=== PATIENT | male | born 1965 | race Caucasian/White ===

== ENCOUNTER 2019-04-06 09:23 | Day surgery (SDC) | payer BC ==
[~2019-04-06 09:23] MED LIST: Lactated Ringers 1,000 ML IV SCH; Lidocaine 1%/Sod Bicarbonate in NS 8.4% 1 ML Syringe IDERM PRN; Sodium Chloride 0.9% 10 ML Syringe FLUSH PRN
[2019-04-06] MEDS ORDERED: Bupivacaine 0.25% 10 ML SDV ONE (11:05)
[2019-04-06] MEDS ORDERED: Ketorolac 30 MG/ML SDV ONE (11:13)
[2019-04-06] MEDS ORDERED: Ondansetron 4 MG/2 ML SDV ONE (11:13)
[2019-04-06] MEDS ORDERED: Lactated Ringers 1,000 ML ONE ×2 (11:13→11:27)
[2019-04-06] MEDS ORDERED: ceFAZolin 1 GM Vial ONE (11:13)
[2019-04-06] MEDS ORDERED: Propofol 200 MG/20 ML SDV ONE (11:14)
[2019-04-06] MEDS ORDERED: fentaNYL 100 MCG/2 ML SDV ONE (11:14)
[2019-04-06] MEDS ORDERED: Lidocaine 1% 4 ML ONE (11:14)
[2019-04-06] MEDS ORDERED: Midazolam 1 MG/ML 2 ML SDV ONE (11:14)
[2019-04-06] MEDS ORDERED: Dexamethasone 4 MG/ML 5 ML MDV ONE (11:25)
[2019-04-06] MEDS ORDERED: Ketamine 500 mg/10 ML MDV ONE (11:42)
[2019-04-06] MEDS ORDERED: ePHEDrine/Normal Saline 25 MG/5 ML Syringe ONE (11:48)
[2019-04-06] MEDS ORDERED: diphenhydrAMINE 50 MG/ML SDV IVPUSH PRN (12:07)
[2019-04-06] MEDS ORDERED: Ondansetron 4 MG/2 ML SDV IVPUSH PRN (12:07)
[2019-04-06] MEDS ORDERED: HYDROmorphone 0.5 MG/0.5 ML Syringe IVPUSH PRN (12:07)
[2019-04-06] MEDS ORDERED: fentaNYL 100 MCG/2 ML SDV IVPUSH PRN (12:07)
--- NOTE | 2019-04-06 12:37 | PCM.POSTAN ---
POST ANESTHESIA ASSESSMENT - MENTAL STATUS Mental Status: Somnolent - VITAL SIGNS Vital Signs: Last Vital Signs 1223 121/65 68 9 94% 98.3F - RESPIRATORY Respiratory Status: Respiratory Rate WNL, Airway Patent, O2 Saturation Stable, Supplemental Oxygen - CARDIOVASCULAR CV Status: Pulse Rate WNL, Blood Pressure Stable - GASTROINTESTINAL GI Status: No Symptoms - PAIN Pain Score: 0 - POST OP HYDRATION Hydration Status: Adequate & Stable
--- NOTE | 2019-04-06 12:38 | PCM.PREANE ---
Preanesthetic Assessment - Anesthesia/Transfusion/Family Hx Anesthesia History: Prior Anesthesia Without Reaction Family History of Anesthesia Reaction: No - Review of Systems General: No Symptoms Pulmonary: No Symptoms Cardiovascular: No Symptoms Gastrointestinal: No Symptoms Neurological: No Symptoms Other: Reports: None - Physical Assessment NPO Status Date: 04/05/19 NPO Status Time: 20:00 Vital Signs: Last Vital Signs Temp 36.7 C 04/06/19 09:30 Pulse 69 04/06/19 09:30 Resp 16 04/06/19 09:30 BP 145/84 H 04/06/19 09:30 Pulse Ox 96 04/06/19 09:30 Height: 1.75 m Weight: 87.997 kg ASA Class: 1 Mental Status: Alert & Oriented x3 Dentition: Reports: Normal Dentition (Caps molars) Thyro-Mental Finger Breadths: 3 Mouth Opening Finger Breadths: 3 ROM/Head Extension: Full Lungs: Clear to Auscultation, Normal Respiratory Effort Cardiovascular: Regular Rate, Regular Rhythm - Lab Values: Laboratory Last Values MRSA (PCR) Negative 04/05/19 15:17 - Allergies Allergies/Adverse Reactions: Allergies Allergy/AdvReac Type Severity Reaction Status Date / Time No Known Allergies Allergy Verified 04/05/19 14:18 - Acknowledgements Anesthesia Type Planned: General Anesthesia Pt an Appropriate Candidate for the Planned Anesthesia: Yes Alternatives and Risks of Anesthesia Discussed w Pt/Guardian: Yes Pt/Guardian Understands and Agrees with Anesthesia Plan: Yes PreAnesthesia Questionnaire HEENT History: Reports: None Cardiovascular History: Reports: None Respiratory History: Reports: None Gastrointestinal History: Reports: None Genitourinary History: Reports: None [employer]IDENT [employer] History: Reports: None Musculoskeletal History: Reports: None Neurological History: Reports: None Psychiatric History: Reports: None Endocrine/Metabolic History: Reports: None Hematologic History: Reports: None Immunologic History: Reports: None Oncologic (Cancer) History: Reports: None Dermatologic History: Reports: None - Past Surgical History Head Surgeries/Procedures: Reports: None HEENT Surgical History: Reports: None Cardiovascular Surgical History: Reports: None Respiratory Surgical History: Reports: None GI Surgical History: Reports: Hernia, Inguinal Female Surgical History: Reports: None Male Surgical History: Reports: None Endocrine Surgical History: Reports: None Neurological Surgical History: Reports: None Musculoskeletal Surgical History: Reports: None Oncologic Surgical History: Reports: None Dermatological Surgical History: Reports: None - SUBSTANCE USE Smoking Status *Q: Never Smoker Recreational Drug Use History: No - HOME MEDS Home Medications: Home Meds Loratadine [Claritin] 10 mg PO DAILY PRN 04/05/19 [History] Acetaminophen/HYDROcodone [[place] 325-5 MG] 1 - 2 tab PO Q6H PRN #20 tablet 04/06 [Rx] Aspirin 325 mg PO BID #84 tab 04/06/19 [Rx] - CURRENT (IN HOUSE) MEDS Current Meds: Current Medications Diphenhydramine HCl (Benadryl) 25 mg IVPUSH Q6H PRN PRN Reason: Pruritis Stop: 04/06/19 16:00 Fentanyl (Sublimaze) 50 mcg IVPUSH Q5M PRN PRN Reason: Pain Stop: 04/06/19 16:00 Hydromorphone HCl (Dilaudid) 0.5 mg IVPUSH Q15M PRN PRN Reason: severe pain Stop: 04/06/19 16:00 Lactated Ringer's (Ringers, Lactated) 1,000 mls @ 125 mls/hr IV ASDIRECTED BRYNN Stop: 04/06/19 23:00 Last Admin: 04/06/19 09:45 Dose: 125 mls/hr Lidocaine/Sodium Bicarbonate (Buffered Lidocaine 1% In Ns 8.4%) 0.25 ml IDERM ONETIME PRN PRN Reason: Prior to IV Start Stop: 04/06/19 18:00 Last Admin: 04/06/19 09:45 Dose: 0.25 ml Ondansetron HCl (Zofran) 4 mg IVPUSH ONETIME PRN PRN Reason: Nausea/Vomiting Stop: 04/06/19 16:00 Sodium Chloride (Saline Flush) 10 ml FLUSH ASDIRECTED PRN PRN Reason: Keep Vein Open Stop: 04/06/19 18:00 Discontinued Medications Bupivacaine HCl (Sensorcaine-Mpf 0.25%) Confirm Administered Dose 20 ml .ROUTE .STK-MED ONE Stop: 04/06/19 11:06 Last Admin: 04/06/19 11:49 Dose: 10 ml Cefazolin Sodium (Ancef) Confirm Administered Dose 2 gm .ROUTE .STK-MED ONE Stop: 04/06/19 11:14 Dexamethasone (Dexamethasone) Confirm Administered Dose 20 mg .ROUTE .STK-MED ONE Stop: 04/06/19 11:26 Ephedrine Sulfate (Ephedrine In Ns) Confirm Administered Dose 25 mg .ROUTE .STK- MED ONE Stop: 04/06/19 11:49 Fentanyl (Sublimaze) Confirm Administered Dose 100 mcg .ROUTE .STK-MED ONE Stop: 04/06/19 11:15 Lactated Ringer's (Ringers, Lactated) Confirm Administered Dose 1,000 mls @ as directed .ROUTE .STK-MED ONE Stop: 04/06/19 11:14 Lidocaine HCl (Xylocaine-Mpf 1%) Confirm Administered Dose 4 mls @ as directed .ROUTE .STK-MED ONE Stop: 04/06/19 11:15 Lactated Ringer's (Ringers, Lactated) Confirm Administered Dose 1,000 mls @ as directed .ROUTE .STK-MED ONE Stop: 04/06/19 11:28 Ketamine HCl (Ketalar) Confirm Administered Dose 500 mg .ROUTE .STK-MED ONE Stop: 04/06/19 11:43 Ketorolac Tromethamine (Toradol) Confirm Administered Dose 30 mg .ROUTE .STK- MED ONE Stop: 04/06/19 11:14 Midazolam HCl (Versed 1 Mg/Ml) Confirm Administered Dose 2 mg .ROUTE .STK-MED ONE Stop: 04/06/19 11:15 Ondansetron HCl (Zofran) Confirm Administered Dose 4 mg .ROUTE .STK-MED ONE Stop: 04/06/19 11:14 Propofol (Diprivan 20 Ml) Confirm Administered Dose 400 mg .ROUTE .STK-MED ONE Stop: 04/06/19 11:15
--- NOTE | 2019-04-06 13:12 | PCM48HPAN ---
Post Anesthesia Note - EVALUATION WITHIN 48HRS OF ANESTHETIC Vital Signs in Normal Range: Yes Patient Participated in Evaluation: Yes Respiratory Function Stable: Yes Airway Patent: Yes Cardiovascular Function Stable: Yes Hydration Status Stable: Yes Pain Control Satisfactory: Yes Nausea and Vomiting Control Satisfactory: Yes Mental Status Recovered: Yes Vital Signs: Last Vital Signs Temp 36.6 C 04/06/19 13:08 Pulse 55 L 04/06/19 13:08 Resp 18 04/06/19 13:08 BP 120/77 04/06/19 13:08 Pulse Ox 96 04/06/19 13:08
--- NOTE | 2019-04-11 09:23 | PCM.OPNOTE ---
- General Post-Op/Procedure Note Date of Surgery/Procedure: 04/06/19 Operative Procedure(s): excision of right knee cyst deep subfascial Pre Op Diagnosis: right knee cyst Post-Op Diagnosis: Same Anesthesia Technique: General LMA, Local Primary Surgeon: Mack Ware Anesthesia Provider: Sara Ramirez Men'S Garment Fitter: Criselda Lester in mLs: 5 Complications: None Condition: Good
--- NOTE | 2019-04-11 09:59 | OR ---
DATE OF OPERATION: 04/06/2019 SURGEON: Mack Ware MD OPERATION PERFORMED: Excision of right knee cyst, deep, subfascial. PREOPERATIVE DIAGNOSIS: Right knee cyst. POSTOPERATIVE DIAGNOSIS: Right knee cyst. ANESTHESIA: General LMA with local. ANESTHESIA PROVIDER: Demetria Merino. THERAPIST OCCUPATIONAL: Criselda Lester PA-C ESTIMATED BLOOD LOSS: 5 mL. COMPLICATIONS: None. CONDITION: Stable. DESCRIPTION OF PROCEDURE: The patient was identified in the preop holding area. Proper site was marked and identified by the surgeon. The patient was taken back to the operating theater, where after adequate anesthesia, the patient was placed supine on radiolucent table. The right lower extremity had a nonsterile tourniquet applied and was then sterilely prepped and draped in the usual sterile fashion. OR time-out was performed. The patient received 2 g IV Ancef. Right lower extremity was exsanguinated. Tourniquet was insufflated to 250 mmHg. Incision was made centered over the IT band distally to Gerdy's tubercle. This was taken down to the IT band. The cyst was noted to be multiloculated and posterior and deep to the posterior border of the IT band. This was taken back down into the stalk. It was noted to come from the joint line near the lateral meniscus, but there was no meniscal tear and there was no opening to the joint other than the small stalk. At this time, the right knee cyst was excised in whole. The area in question of the stalk had 0 Vicryl [id number] stitches placed in it. At this time, adequate saline was irrigated through the wound. 0 Vicryl was used for closure of the fascial compartment, 2-0 Vicryl was used subcutaneously, and madeline used for the skin. The patient was placed in a sterile soft dressing and sent to the PACU in stable condition. MMODAL /[id number]
== END 2019-04-06 14:40 | disposition home or self-care (01) ==
LOC: JD.SDS 09:23
PROVIDERS: ATTEND Orthopaedic Surgery
DX: M67.461 Ganglion, right knee (principal); Z87.891 Personal history of nicotine dependence
CPT/HCPCS: 27347; 87641; J0690; J1100; J1885; J2001; J2250; J2405; J2704; J3010; J3490; J7050; J7120; 01400

== ENCOUNTER 2019-04-08 12:47 | Emergency (ER) | payer BC ==
[2019-04-08] MEDS ORDERED: Sodium Chloride 0.9% 10 ML Syringe FLUSH PRN (13:00)
[2019-04-08] MEDS ORDERED: methylPREDNISolone Sodium Succinate 125 MG/2 ML SDV IVPUSH ONE (13:00)
[2019-04-08] MEDS ORDERED: Famotidine 20 MG/2 ML SDV IVPUSH ONE ×2 (13:01→13:40)
[2019-04-08] MEDS ORDERED: diphenhydrAMINE 50 MG/ML SDV IVPUSH ONE (13:01)
[2019-04-08] MEDS ORDERED: EPINEPHrine 1 MG/ML SDV IM ONE (13:07)
--- NOTE | 2019-04-08 13:32 | EDM.PDOC ---
ED HPI GENERAL MEDICAL PROBLEM - General Chief Complaint: Allergic Reaction Stated Complaint: EYES SWOLLEN AND RED/POSS ALLERGIC REACTION Time Seen by Provider: 04/08/19 13:00 - History of Present Illness INITIAL COMMENTS - FREE TEXT/NARRATIVE: 53 -year-old male presents emergency room with the allergic reaction Started around noon came on fairly fast he had significant itching facial swelling and he had some throat tightness with this as well. Upon arrival to the emergency room received Pepcid epi Benadryl and Solu-Medrol he is doing much better at this time. He still has some swelling swelling on his face is getting better he still has some angioedematous changes behind his uvula but this seems to be getting better. Patient has no breathing difficulties or shortness of breath at this time. Patient was recently started on aspirin first dose yesterday to prevent blood clots he had orthopedic surgery. He's had no other new medications or new exposures that he is aware of. Upon arrival here today his right eye was nearly completely swollen shut it is now mostly open. Throat Pain Score (Numeric/FACES): 6 - Related Data Allergies Allergy/AdvReac Type Severity Reaction Status Date / Time No Known Allergies Allergy Verified 04/05/19 14:18 Home Meds: Home Meds Loratadine [Claritin] 10 mg PO DAILY PRN 04/05/19 [History] Acetaminophen/HYDROcodone [[place] 325-5 MG] 1 - 2 tab PO Q6H PRN #20 tablet 04/06 [Rx] Aspirin 325 mg PO BID #84 tab 04/06/19 [Rx] predniSONE 60 mg PO WITHBREAKFAST #12 tab 04/08/19 [Rx] Past Medical History HEENT History: Reports: None Cardiovascular History: Reports: None Respiratory History: Reports: None Gastrointestinal History: Reports: None Genitourinary History: Reports: None [employer] 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 History: Reports: None Musculoskeletal History: Reports: None Neurological History: Reports: None Psychiatric History: Reports: None Endocrine/Metabolic History: Reports: None Hematologic History: Reports: None Immunologic History: Reports: None Oncologic (Cancer) History: Reports: None Dermatologic History: Reports: None - Past Surgical History Head Surgeries/Procedures: Reports: None HEENT Surgical History: Reports: None Cardiovascular Surgical History: Reports: None Respiratory Surgical History: Reports: None GI Surgical History: Reports: Hernia, Inguinal Male Surgical History: Reports: None Endocrine Surgical History: Reports: None Neurological Surgical History: Reports: None Musculoskeletal Surgical History: Reports: None, Other (See Below) Other Musculoskeletal Surgeries/Procedures:: bursa removed from the right knee Oncologic Surgical History: Reports: None Dermatological Surgical History: Reports: None Social & Family History - Tobacco Use Smoking Status *Q: Former Smoker Used Tobacco, but Quit: Yes Month/Year Tobacco Last Used: 5 yr - Caffeine Use Caffeine Use: Reports: Soda, Tea - Recreational Drug Use Recreational Drug Use: No ED ROS ALLERGIC REACTION - Review of Systems Review Of Systems: See Below Constitutional: Reports: No Symptoms HEENT: Reports: Other (eye swelling throat tightness). Denies: No Symptoms Respiratory: Reports: Shortness of Breath Cardiovascular: Reports: No Symptoms Endocrine: Reports: No Symptoms GI/Abdominal: Reports: No Symptoms : Reports: No Symptoms Skin: Reports: No Symptoms Neurological: Reports: No Symptoms Psychiatric: Reports: No Symptoms ED EXAM GENERAL NO PERIP PULSE - Physical Exam Exam: See Below Exam Limited By: No Limitations General Appearance: Alert, No Apparent Distress Eye Exam: Right Eye: Periorbital Changes (He has some swelling in this area) Ears: Normal External Exam, Normal Canal, Hearing Grossly Normal, Normal TMs Nose: Normal Inspection, Normal Mucosa, No Blood Throat/Mouth: Normal Lips, Normal Teeth, Other (Uvula looks normal however he has some angioedematous tissue behind it airways cleared open at this particular moment.) Head: Atraumatic, Normocephalic Neck: Normal Inspection, Supple, Non-Tender, Full Range of Motion Respiratory/Chest: No Respiratory Distress, Lungs Clear, Normal Breath Sounds, No Accessory Muscle Use, Chest Non-Tender Cardiovascular: Normal Peripheral Pulses, Regular Rate, Rhythm, No Edema, No Gallop, No JVD, No Murmur, No Rub GI/Abdominal: Normal Bowel Sounds, Soft, Non-Tender, No Organomegaly, No Distention Course - Vital Signs Last Recorded V/S: Last Vital Signs Temp 36.3 C 04/08/19 12:53 Pulse 66 04/08/19 12:53 Resp 20 04/08/19 12:53 BP 154/80 H 04/08/19 12:53 Pulse Ox 96 04/08/19 12:53 - Orders/Labs/Meds Orders: Active Orders 24 hr Category Date Time Status Peripheral IV Care [RC] . DIRECTED Care 04/08/19 13:00 Active Sodium Chloride 0.9% [Saline Flush] Med 04/08/19 13:00 Active 10 ml FLUSH ASDIRECTED PRN Peripheral IV Insertion Adult [OM.PC] Routine Oth 04/08/19 13:00 Ordered Medication Orders Sodium Chloride (Saline Flush) 10 ml FLUSH ASDIRECTED PRN PRN Reason: Keep Vein Open Last Admin: 04/08/19 13:16 Dose: 10 ml Meds: Medications Generic Name Dose Route Start Last Admin Trade Name Freq PRN Reason Stop Dose Admin Sodium Chloride 10 ml 04/08/19 13:00 04/08/19 13:16 Saline Flush FLUSH 10 ml ASDIRECTED PRN Administration Keep Vein Open Discontinued Medications Generic Name Dose Route Start Last Admin Trade Name Freq PRN Reason Stop Dose Admin Diphenhydramine HCl 50 mg 04/08/19 13:01 04/08/19 13:16 Benadryl IVPUSH 04/08/19 13:02 50 mg ONETIME ONE Administration Epinephrine HCl 0.3 mg 04/08/19 13:07 04/08/19 13:17 Adrenalin IM 04/08/19 13:08 0.3 mg ONETIME ONE Administration Famotidine 20 mg 04/08/19 13:01 04/08/19 13:16 Pepcid IVPUSH 04/08/19 13:02 20 mg ONETIME ONE Administration Famotidine 20 mg 04/08/19 13:40 04/08/19 13:55 Pepcid IVPUSH 04/08/19 13:41 20 mg ONETIME ONE Administration Methylprednisolone Sodium Succinate 125 mg 04/08/19 13:00 04/08/19 13:16 Solu-Medrol IVPUSH 04/08/19 13:01 125 mg ONETIME ONE Administration - Re-Assessments/Exams Free Text/Narrative Re-Assessment/Exam: 04/08/19 18:35 She's had frequent checks isn't then. Some electric angioedematous tissue behind his uvula and involving the lateral margins of his uvula this is progressively decreases sore throat is much better. It is nearly back to normal at this point patient really would like to go home. The patient was recently started on aspirin to prevent blood clots after an orthopedic procedure couple of days ago. He is also taking oxycodone or hydrocodone were trying to clarify which pain medication he is on. But he will stop the aspirin at this point case discussed with Dr. Cramer, on-call orthopedic surgeon at [facility] [place]. The patient is on [place] however the patient thinks she'll do just fine on Tylenol. The patient is been fairly active since time of the surgery and has been walking quite a bit. He uses a single crutch to assist him going up and down stairs. Departure - Departure Time of Disposition: 18:15 Disposition: Home, Self-Care 01 Clinical Impression: Allergic reaction caused by a drug - Discharge Information Prescriptions: predniSONE 60 mg PO WITHBREAKFAST #12 tab Referrals: Murali Batista Jr, MD [Primary Care Provider] - Forms: ED Department Discharge Additional Instructions: Return to emergency room with any questions problems or worsening symptoms. 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 Take Benadryl 25 mg every 6 hours for the next 24 hours and then as needed. Benadryl can cause sedation. Take the prednisone 20 mg tablets 3 of them every morning first thing in the morning for the next 4 mornings. Take with food Use Tylenol as needed for discomfort
== END 2019-04-08 19:13 | disposition home or self-care (01) ==
LOC: JD.ED 12:47
DX: R22.0 Localized swelling, mass and lump, head (principal); T39.015A Adverse effect of aspirin, initial encounter; Z87.891 Personal history of nicotine dependence
CPT/HCPCS: 96372; 96374; 96375; 96376; 99283; J0171; J1200; J2930; J3490

== ENCOUNTER 2021-05-13 12:01 | Emergency (ER) | payer BC ==
--- NOTE | 2021-05-13 13:21 | EDM.PDOC ---
<Case Lorenzo - Last Filed: 05/13/21 13:20> ED HPI GENERAL MEDICAL PROBLEM - General Chief Complaint: Respiratory Problem Stated Complaint: had covid cough sob Time Seen by Provider: 05/13/21 13:20 - Related Data Allergies Allergy/AdvReac Type Severity Reaction Status Date / Time aspirin Allergy Swelling Verified 05/13/21 12:34 hydrocodone Allergy Swelling Verified 05/13/21 12:34 Home Meds: Home Meds Loratadine [Claritin] 10 mg PO DAILY PRN 04/05/19 [History] Acetaminophen/HYDROcodone [[place] 325-5 MG] 1 - 2 tab PO Q6H PRN #20 tablet 04/06/19 [Rx] Aspirin 325 mg PO BID #84 tab 04/06/19 [Rx] predniSONE 60 mg PO WITHBREAKFAST #12 tab 04/08/19 [Rx] Azithromycin 250 mg PO ASDIRECTED #6 tablet 05/13/21 [Rx] Codeine/Promethazine [Phenergan with Codeine] 5 ml PO Q4HR PRN #120 ml 05/13/21 [Rx] Past Medical History HEENT History: Reports: None Cardiovascular History: Reports: None Respiratory History: Reports: None Gastrointestinal History: Reports: None Genitourinary History: Reports: None [employer] History: Reports: None Musculoskeletal History: Reports: None Neurological History: Reports: None Psychiatric History: Reports: None Endocrine/Metabolic History: Reports: None Hematologic History: Reports: None Immunologic History: Reports: None Oncologic (Cancer) History: Reports: None Dermatologic History: Reports: None - Infectious Disease History Infectious Disease History: Reports: Novel Coronavirus - Past Surgical History Head Surgeries/Procedures: Reports: None HEENT Surgical History: Reports: None Cardiovascular Surgical History: Reports: None Respiratory Surgical History: Reports: None GI Surgical History: Reports: Hernia, Inguinal Male Surgical History: Reports: None Endocrine Surgical History: Reports: None Neurological Surgical History: Reports: None Musculoskeletal Surgical History: Reports: None, Other (See Below) Other Musculoskeletal Surgeries/Procedures:: bursa removed from the right knee Oncologic Surgical History: Reports: None Dermatological Surgical History: Reports: None Social & Family History - Tobacco Use Tobacco Use Status *Q: Never Tobacco User - Caffeine Use Caffeine Use: Reports: Soda, Tea Departure - Departure Disposition: Home, Self-Care 01 Clinical Impression: COVID-19 Community acquired pneumonia Qualifiers: Laterality: unspecified laterality Qualified Code(s): J18.9 - Pneumonia, unspecified organism - Discharge Information Prescriptions: Azithromycin 250 mg PO ASDIRECTED #6 tablet Codeine/Promethazine [Phenergan with Codeine] 5 ml PO Q4HR PRN #120 ml PRN Reason: Cough Instructions: 10 Things You Can Do to Manage Your COVID-19 Symptoms at Home - [facility] (02/07/2021), Community-Acquired Pneumonia, Adult, [id number] Referrals: PCP,None [Primary Care Provider] - Forms: ED Department Discharge Additional Instructions: You were evaluated in the ER today for your cough, and shortness of breath. You had several labs taken at today's visit, chest x-ray and a chest CT for further evaluation. Although you do have a viral pneumonia, typical for ongoing COVID-19 infection, your white count was also slightly elevated to suggest a possible overlying bacterial pneumonia. Laboratory evaluation also demonstrated an elevated D-dimer, and a markedly elevated CRP. This is all suggestive of ongoing infection. Your chest CT demonstrated no sign of a blood clot in your lungs. You have been given 2 different medications one is azithromycin, you will need to take 2 tabs on day 1, and 1 tablet daily until gone. The other medication is a cough syrup, you may take 5 to 10 mL p.o. every 4-6 hours as needed for cough. This medication was electronically sent to the [facility] located near [facility]. You might want to try a medication like Mucinex to see if this helps break up some of the mucus in your chest this is something can get [id number] at any retail space. Please try to increase your oral fluid intake is much as possible, fluids like Gatorade/Powerade/Pedialyte would be acceptable. Try to eat multiple small meals throughout the day, to break this up in order to keep her self nourished. You are going to have to continue to keep feeding yourself in order to fight off of this disease. Sometimes symptoms from COVID-19 can take days to weeks to months to start feeling better. Please be aware, that this does not get better overnight. You might still be feeling under the weather for a period of time. Do not hesitate to return to the ER at any time if symptoms change or worsen. Sepsis Event Note (ED) - Evaluation Sepsis Screening Result: No Definite Risk <Sondra Deleon V - Last Filed: 05/13/21 18:33> ED HPI GENERAL MEDICAL PROBLEM - General Source of Information: Reports: Patient, RN Notes Reviewed History Limitations: Reports: No Limitations - History of Present Illness INITIAL COMMENTS - FREE TEXT/NARRATIVE: Patient is a 55-year-old male who presents to the ER for the evaluation of his lingering COVID-19 symptoms. Patient states that he tested positive for COVID- 19 on 05/01/2021. States that he has a lingering chills sensation, a dry nonproductive cough, chest discomfort due to the cough, some slight blood-tinged sputum due to the coughing, some slight nausea with one episode of vomiting after coughing fits and no appetite whatsoever. He states that he is only 9 maybe a handful of peanut butter sandwiches in the last week or so. O2 sats at the time of triage were about 89% on room air, he was placed on 2 L via nasal cannula and he is satting around 93% at this time with no visible respiratory difficulty. Patient was not vaccinated for COVID-19, he is denying any other past medical history. [facility] provider was Murali Batista, but he is not set up with anyone else since Dr. Batista has retired. ED ROS GENERAL - Review of Systems Review Of Systems: Comprehensive ROS is negative, except as noted in HPI. ED EXAM, GENERAL - Physical Exam Exam: See Below Exam Limited By: No Limitations General Appearance: Alert, WD/WN, No Apparent Distress Respiratory/Chest: No Respiratory Distress, Lungs Clear, Normal Breath Sounds, No Accessory Muscle Use, Chest Non-Tender Cardiovascular: Normal Peripheral Pulses, Regular Rate, Rhythm, No Edema Extremities: Normal Inspection, Normal Capillary Refill Neurological: Alert, Oriented, Normal Cognition, No Motor/Sensory Deficits Psychiatric: Normal Affect, Normal Mood Skin Exam: Warm, Dry, Intact, Normal Color, No Rash Course - Vital Signs Last Recorded V/S: Last Vital Signs Temp 100.0 F 05/13/21 15:59 Pulse 78 05/13/21 15:59 Resp 16 05/13/21 15:59 BP 127/60 05/13/21 13:59 Pulse Ox 97 05/13/21 15:59 - Orders/Labs/Meds Orders: Active Orders 24 hr Category Date Time Status Peripheral IV Care [RC] . DIRECTED Care 05/13/21 13:50 Ordered Sodium Chloride 0.9% [Normal Saline] 100 ml Med 05/13/21 15:30 Active IV ASDIRECTED Sodium Chloride 0.9% [Saline Flush] Med 05/13/21 13:49 Ordered 10 ml FLUSH ASDIRECTED PRN Peripheral IV Insertion Adult [OM.PC] Routine Oth 05/13/21 13:49 Ordered Medication Orders Sodium Chloride (Normal Saline) 100 mls @ 60 mls/hr IV ASDIRECTED BRYNN Sodium Chloride (Sodium Chloride 0.9% 10 Ml Syringe) 10 ml FLUSH ASDIRECTED PRN PRN Reason: Keep Vein Open Last Admin: 05/13/21 13:50 Dose: 10 ml Documented by: GUME Labs: Laboratory Tests 05/13/21 05/13/21 05/13/21 Range/Units 13:27 13:27 13:27 WBC 12.45 H (4.23-9.07) K/mm3 RBC 5.11 (4.63-6.08) M/mm3 Hgb 15.4 (13.7-17.5) gm/dl Hct 44.7 (40.1-51.0) % MCV 87.5 (79.0-92.2) fl MCH 30.1 (25.7-32.2) pg MCHC 34.5 (32.2-35.5) g/dl RDW Std Deviation 40.8 (35.1-43.9) fL Plt Count 557 H (163-337) K/mm3 MPV 9.4 (9.4-12.3) fl Neut % (Auto) 77.6 H (34.0-67.9) % Lymph % (Auto) 12.3 L (21.8-53.1) % [place] % (Auto) 8.1 (5.3-12.2) % Eos % (Auto) 0.2 L (0.8-7.0) Baso % (Auto) 0.5 (0.1-1.2) % Neut # (Auto) 9.67 H (1.78-5.38) K/mm3 Lymph # (Auto) 1.53 (1.32-3.57) K/mm3 [place] # (Auto) 1.01 H (0.30-0.82) K/mm3 Eos # (Auto) 0.02 L (0.04-0.54) K/mm3 Baso # (Auto) 0.06 (0.01-0.08) K/mm3 Manual Slide Review Abnormal smear D-Dimer, Quantitative 2.01 H (0.19-0.50) mg/L Sodium (136-145) mEq/L Potassium (3.5-5.1) mEq/L Chloride (98-107) mEq/L Carbon Dioxide (21-32) mEq/L Anion Gap (5-15) BUN (7-18) mg/dL Creatinine (0.7-1.3) mg/dL Est Cr Clr Drug Dosing mL/min Estimated GFR (MDRD) (>60) mL/min BUN/Creatinine Ratio (14-18) Glucose (70-99) mg/dL Calcium (8.5-10.1) mg/dL Total Bilirubin (0.2-1.0) mg/dL AST (15-37) U/L ALT (16-63) U/L Alkaline Phosphatase (46-116) U/L C-Reactive Protein 25.7 H* (<1.0) mg/dL Total Protein (6.4-8.2) g/dl Albumin (3.4-5.0) g/dl Globulin gm/dL Albumin/Globulin Ratio (1-2) 05/13/21 Range/Units 13:27 WBC (4.23-9.07) K/mm3 RBC (4.63-6.08) M/mm3 Hgb (13.7-17.5) gm/dl Hct (40.1-51.0) % MCV (79.0-92.2) fl MCH (25.7-32.2) pg MCHC (32.2-35.5) g/dl RDW Std Deviation (35.1-43.9) fL Plt Count (163-337) K/mm3 MPV (9.4-12.3) fl Neut % (Auto) (34.0-67.9) % Lymph % (Auto) (21.8-53.1) % [place] % (Auto) (5.3-12.2) % Eos % (Auto) (0.8-7.0) Baso % (Auto) (0.1-1.2) % Neut # (Auto) (1.78-5.38) K/mm3 Lymph # (Auto) (1.32-3.57) K/mm3 [place] # (Auto) (0.30-0.82) K/mm3 Eos # (Auto) (0.04-0.54) K/mm3 Baso # (Auto) (0.01-0.08) K/mm3 Manual Slide Review D-Dimer, Quantitative (0.19-0.50) mg/L Sodium 134 L (136-145) mEq/L Potassium 3.7 (3.5-5.1) mEq/L Chloride 95 L (98-107) mEq/L Carbon Dioxide 29 (21-32) mEq/L Anion Gap 13.7 (5-15) BUN 28 H (7-18) mg/dL Creatinine 1.3 (0.7-1.3) mg/dL Est Cr Clr Drug Dosing 67.07 mL/min Estimated GFR (MDRD) 58 (>60) mL/min BUN/Creatinine Ratio 21.5 H (14-18) Glucose 122 H (70-99) mg/dL Calcium 8.7 (8.5-10.1) mg/dL Total Bilirubin 1.2 H (0.2-1.0) mg/dL AST 69 H (15-37) U/L ALT 56 (16-63) U/L Alkaline Phosphatase 71 (46-116) U/L C-Reactive Protein (<1.0) mg/dL Total Protein 8.4 H (6.4-8.2) g/dl Albumin 2.8 L (3.4-5.0) g/dl Globulin 5.6 gm/dL Albumin/Globulin Ratio 0.5 L (1-2) Meds: Medications Generic Name Dose Route Start Last Admin Trade Name Freq PRN Reason Stop Dose Admin Sodium Chloride 100 mls @ 60 mls/hr 05/13/21 15:30 Normal Saline IV ASDIRECTED BRYNN Sodium Chloride 10 ml 05/13/21 13:49 05/13/21 13:50 Sodium Chloride 0.9% 10 Ml Syringe FLUSH 10 ml ASDIRECTED PRN Administration Keep Vein Open Discontinued Medications Generic Name Dose Route Start Last Admin Trade Name Freq PRN Reason Stop Dose Admin Sodium Chloride 1,000 mls @ 999 mls/hr 05/13/21 13:49 05/13/21 13:50 Normal Saline IV 05/13/21 14:49 999 mls/hr ONETIME ONE Administration Iopamidol 100 ml 05/13/21 15:25 05/13/21 17:50 Iopamidol 755 Mg/Ml 100 Ml Bottle IVPUSH 05/13/21 15:26 100 ml ONETIME ONE Administration Sodium Chloride 10 ml 05/13/21 15:25 05/13/21 18:18 Sodium Chloride 0.9% 10 Ml Syringe FLUSH 05/13/21 15:26 10 ml ONETIME ONE Administration - Re-Assessments/Exams Free Text/Narrative Re-Assessment/Exam: 05/13/21 14:10 The patient presents to the ER for the evaluation of his lingering COVID-19 symptoms, we will go ahead get IV started given some IV fluids, get some basic labs for initial evaluation. 05/13/21 15:27 Patient's laboratory evaluation does demonstrate a modestly elevated white count, CMP that is fairly unremarkable, CRP that is markedly elevated at around 25, and a D-dimer that is elevated at 2.01. Patient's chest x-ray does show moderate Covid pneumonia type changes official radiology read is still pending. Patient would like to go forward with a CT of his chest to rule out pulmonary embolus, so this has been ordered. I did go over the risk/benefit ratio. The patient still verbalized wanting to do the study. Departure - Departure Time of Disposition: 18:29 Condition: Good - Discharge Information *PRESCRIPTION DRUG MONITORING PROGRAM REVIEWED*: No *COPY OF PRESCRIPTION DRUG MONITORING REPORT IN PATIENT RATNA: No Sepsis Event Note (ED) - Focused Exam Vital Signs: Vital Signs Temp Pulse Resp BP Pulse Ox 05/13/21 15:59 100.0 F 78 16 97 05/13/21 13:59 98.5 F 84 18 127/60 94 L 05/13/21 12:30 98.8 F 86 26 H 145/73 H 89 L - My Orders Last 24 Hours: My Active Orders 05/13/21 13:49 Sodium Chloride 0.9% [Saline Flush] 10 ml FLUSH ASDIRECTED PRN Peripheral IV Insertion Adult [OM.PC] Routine 05/13/21 13:50 Peripheral IV Care [RC] . DIRECTED 05/13/21 15:30 Sodium Chloride 0.9% [Normal Saline] 100 ml IV ASDIRECTED - Assessment/Plan Last 24 Hours: My Active Orders 05/13/21 13:49 Sodium Chloride 0.9% [Saline Flush] 10 ml FLUSH ASDIRECTED PRN Peripheral IV Insertion Adult [OM.PC] Routine 05/13/21 13:50 Peripheral IV Care [RC] . DIRECTED 05/13/21 15:30 Sodium Chloride 0.9% [Normal Saline] 100 ml IV ASDIRECTED
[2021-05-13] MEDS ORDERED: Sodium Chloride 0.9% 1,000 ML IV ONE (13:49)
[2021-05-13] MEDS ORDERED: Sodium Chloride 0.9% 10 ML Syringe FLUSH PRN (13:49)
[2021-05-13] MEDS ORDERED: Sodium Chloride 0.9% 10 ML Syringe FLUSH ONE (15:25)
[2021-05-13] MEDS ORDERED: Iopamidol 755 Mg/ML 100 ML Bottle IVPUSH ONE (15:25)
[2021-05-13] MEDS ORDERED: Sodium Chloride 0.9% 100 ML IV SCH (15:30)
--- NOTE | 2021-05-13 15:35 | CR ---
Chest: PA and lateral views of the chest were obtained. Comparison: No prior chest imaging is available. Diffuse parenchymal density is seen on both sides of the chest. Heart size is at the upper limits of normal. Upper mediastinum is within normal limits. Bony structures show nothing acute. Impression: 1. Diffuse increased density within both sides of the chest highly suspicious for COVID pneumonia. Diagnostic code #3
--- NOTE | 2021-05-13 18:15 | CT ---
CT chest Technique: Multiple axial section through the chest were obtained. Intravenous contrast was utilized. Study has been performed as a pulmonary angiogram protocol. Comparison: No prior chest CT, prior chest x-ray performed earlier on the same day (3:00 PM). Findings: Pulmonary arteries are well opacified. No filling defects are seen to indicate pulmonary embolism. Thoracic aorta shows atherosclerotic change with no aneurysm. Mild adenopathy is seen within the mediastinum and both hilar regions presumably due to parenchymal process that will be subsequently described. No pericardial thickening is seen. Small hiatal hernia is noted. No additional abnormality is seen within the visualized abdomen. Lung window settings were reviewed which show diffuse parenchymal change throughout both sides of the chest. Bone window settings were reviewed which show no acute osseous abnormality. Impression: 1. No findings of pulmonary embolism. 2. Small hiatal hernia is incidentally noted. 3. Diffuse change of fairly severe COVID pneumonia is present. Diagnostic code #3
== END 2021-05-13 18:45 | disposition home or self-care (01) ==
LOC: JD.ED 12:01
DX: U07.1 COVID-19 (principal); J12.82 Pneumonia due to coronavirus disease 2019; Z88.8 Allergy status to other drugs, medicaments and biological substances; Z88.5 Allergy status to narcotic agent; Z79.899 Other long term (current) drug therapy
CPT/HCPCS: 36415; 71046; 71275; 80053; 85025; 85379; 86140; 99285; J7030; Q9967